=== PATIENT | male | born 1955 | race Two or more races ===

== ENCOUNTER 2024-11-09 08:36 | Emergency (ER) | payer OTHER, MEDICAID ==
[~2024-11-09] VITALS: Ht 170.2 cm; Wt 64.0 kg
--- NOTE | 2024-11-09 08:48 | ECG ---
[facility] Test Date: 2024-11-09 Test Time: 08:47:38 Pat Name: AIYANA MANLEY Department: ER Room: Gender: M [employer]: GP : 1955 Requested By: JUAN PABLO COREAS Order Number: [id number] Reading MD: Chato Santoro Measurements Intervals [place] Rate: 80 P: 54 AK: 158 QRS: 98 QRSD: 95 T: 21 QT: 396 QTc: 457 Interpretive Statements Sinus rhythm Right axis deviation Consider left ventricular hypertrophy Baseline wander in lead(s) II,III,aVR,aVF Electronically Signed On 11-11-2024 22:06:33 PDT by Chato Santoro Please click the below link to view image of tracing.
--- NOTE | 2024-11-09 09:02 | ED.PDOC ---
HPI Comments 69 year old male presents to the ED with a chief complaint of chest pain onset 7 days. Patient states he woke up 1 week ago experiencing chest pain, noticed pain worsens with movement of LT arm, deep breaths, and cough. Patient noticed pain has been constant for the past 7 days, decided to come to ED. PMHx HTN, DM, HLD. Denies headache, shortness of breath, blurry vision, nausea, vomiting, diarrhea, abdominal pain, chills, fever, congestion. No other symptoms or modifying factors present at this time. Chief Complaint: Chest Pain Time Seen by MD: 08:52 Primary Care Provider: unknown Reviewed Notes: Medications, Allergies Allergies: Coded Allergies: NO KNOWN ALLERGIES (Unverified , 11/09/24) Information Source: Patient Mode of Arrival: Ambulatory Severity: Moderate Timing: Weeks Duration: Since onset Prehospital treatment: None Location: Chest (L) Radiation: Arm (L) Quality: Sharp, Pressure Onset: At Rest Cardiac Risk Factors: Hyperlipidemia, HTN, Diabetes PE Risk Factors: None History of: None Modifying Factors: Nothing Past Medical History PAST MEDICAL HISTORY: DM, High Lipids, HTN Surgical History: Denies all surgeries Family History Family History: Reviewed,noncontributory to illness, No family hx of Cancer, No family hx of DM, No family hx of Heart torie, No family hx of HTN, No family hx ofKidney torie, No family hx of Liver torie, No family hx of Lung torie, No family hx of Stroke Social History Smoker: Quit Greater Than 1 Year Alcohol: Occasionally Drugs: Denies Drug Use Lives In: Home Constitutional: denies: chills, diaphoresis, fatigue, fever, malaise, sweats, weakness, others EENTM: denies: blurred vision, double vision, ear bleeding, ear discharge, ear drainage, ear pain, ear ringing, eye pain, eye redness, hearing loss, mouth pain, mouth swelling, nasal discharge, nose bleeding, nose congestion, nose pain, photophobia, tearing, throat pain, throat swelling, voice changes, others Respiratory: denies: cough, hemoptysis, orthopnea, SOB at rest, shortness of breath, SOB with excertion, stridor, wheezing, others Cardiovascular: reports: chest pain; denies: dizzy spells, diaphoresis, Dyspnea on exertion, edema, irregular heart beat, left arm pain, lightheadedness, palpitations, PND, syncope, others Gastrointestinal: denies: abdomen distended, abdominal pain, blood streaked bowels, constipated, diarrhea, dysphagia, difficulty swallowing, hematemesis, melena, nausea, poor appetite, poor fluid intake, rectal bleeding, rectal pain, vomiting, others Genitourinary: denies: burning, dysuria, flank pain, frequency, hematuria, incontinence, penile discharge, penile sore, pain, testicle pain, testicle swelling, urgency, others Neurological: denies: dizziness, fainting, headache, left sided numbness, left sided weakness, numbness, paresthesia, pre-existing deficit, right sided numbness, right sided weakness, seizure, speech problems, tingling, tremors, weakness, others Musculoskeletal: denies: back pain, gout, joint pain, joint swelling, muscle pain, muscle stiffness, neck pain, others Integumetry: denies: bruises, change in color, change in hair/nails, dryness, laceration, lesions, lumps, rash, wounds, others Allergic/Immunocompromised: denies: Difficulty Healing, Frequent Infections, Hives, Itching, others Hematologic/Lymphatic: denies: anemia, blood clots, easy bleeding, easy bruising, swollen glands, others Endocrine: denies: excessive hunger, excessive sweating, excessive thirst, excessive urination, flushing, intolerance to cold, intolerance to heat, unexplained weight gain, unexplained weight loss, others Psychiatric: denies: anxiety, bipolar disorder, depression, hopeless, panic disorder, schizophrenia, sleepless, suicidal, others All Other Systems: Reviewed and Negative Physical Exam General Appearance: Moderate Distress, Normal HEENT: Normal ENT Inspection, Pharynx Normal, TMs Normal Neck: Full Range of Motion, Non-Tender, Normal, Normal Inspection Respiratory: Chest Non-Tender, Lungs Clear, No Accessory Muscle Use, No Respiratory Distress, Normal Breath Sounds Cardiovascular: No Edema, No JVD, No Murmur, No Gallop, Normal Peripheral Pulses, Regular Rate/Rhythm Breast Exam: Deferred Gastrointestinal: No Organomegaly, Non Tender, No Pulsatile Mass, Normal Bowel Sounds, Soft Genitalia: Deferred Pelvic: Deferred Rectal: Deferred Extremities: No calf tenderness, Normal capillary refill, Normal inspection, Normal range of motion, Non-tender, No pedal edema Musculoskeletal : Apperance: Normal Neurologic: Alert, health psychologist II-XII nml as Tested, No Motor Deficits, Normal Affect, Normal Mood, No Sensory Deficits Cerebellar Function: Normal Reflexes: Normal Skin: Dry, Normal Color, Warm Peripheral Pulses: 3+ Radial (R), 3+ Radial (L) Lymphatic: No Adenopathy Was a procedure done? Was a procedure done?: No CP Differential Dx Differential Diagnosis: A-fib, A-Flutter, Angina, Anxiety / Panic Attack, Atrial Dysrhythmia, Electrolyte Disorder X-Ray, Labs, Meds, VS Vital Signs Date Time Temp Pulse Resp B/P (MAP) Pulse Ox O2 Delivery O2 Flow Rate FiO2 11/09/24 09:07 153/87 11/09/24 09:07 97.9 71 16 153/87 (109) 96 97.9 11/09/24 08:57 Room Air* 0 21 11/09/24 08:47 80 11/09/24 08:46 98.2 71 18 184/67 (106) 99 98.2 Lab Test 11/09/24 08:48 Range/Units White Blood Count Pending Red Blood Count Pending Hemoglobin Pending Hematocrit Pending Mean Corpuscular Volume Pending Mean Corpuscular Hemoglobin Pending Mean Corpuscular Hemoglobin Concent Pending Red Cell Distribution Width Pending Platelet Count Pending Mean Platelet Volume Pending Neutrophils (%) (Auto) Pending Lymphocytes (%) (Auto) Pending Monocytes (%) (Auto) Pending Basophils (%) (Auto) Pending Neutrophils # (Auto) Pending Lymphocytes # (Auto) Pending Monocytes # (Auto) Pending Sodium Level 139 136-145 mmol/L Potassium Level 4.3 3.5-5.1 mmol/L Chloride Level Pending Carbon Dioxide Level 27 20-31 mmol/L Anion Gap Pending Blood Urea Nitrogen 24 H 9-23 mg/dL Creatinine 1.12 0.700-1.30 mg/dL Glomerular Filtration Rate Calc 71 >90 mL/min BUN/Creatinine Ratio 21.4 H 10.0-20.0 Serum Glucose 129 H 74-106 mg/dL Calcium Level 10.1 8.7-10.4 mg/dL Troponin I High Sensitivity 8 </=54 ng/L Current Medications Medications (Trade) Dose Ordered Sig/Isatu Route Start Time Stop Time Status Last Admin Aspirin 325 mg ONCE ONCE PO 11/09/24 09:00 11/09/24 09:02 DC 11/09/24 09:07 Nitroglycerin (Ntrostat Sublingual) 0.4 mg ONCE ONCE SL 11/09/24 09:00 11/09/24 09:02 DC 11/09/24 09:07 Patient alert. Complaining of chest pain. Vitals stable. Answering questions. Was given aspirin. Was given nitro. Has risk factors for coronary artery disease. Blood pressure elevated. EKG reviewed does not show any acute changes pain LVH. Reviewed his history. Explained to the patient Continue cardiac monitoring. Time of 1ST Reevaluation: 09:22 Reevaluation 1ST: Unchanged Patient Education/Counseling: Diagnosis, Treatment, Prognosis Family Education/Counseling: No Family Present Additional Information The following tests were ordered, and results were reviewed by me: TROP-x3, EKG- x3, CBC, BMP I discussed treatment and results with medical personnel and: Patient Comprehensive systems review obtained and negative except for what is stated in the HPI. Departure 1 Departure Time of Disposition: 09:30 Impression: Primary Impression: Chest pain of unknown etiology Additional Impression: Hypertension Qualified Codes: I10 - Essential (primary) hypertension Disposition: ADMITTED INPATIENT Admit to: Med Surg Condition: Guarded Critical Care Note Critical Care Time?: No Stability Stability form required: No Heart Score Heart Score: Heart Score Response (Comments) Value History Slightly Suspicious 0 EKG Normal 0 Age >65 2 Risk Factors >3 or Hx ASHD 2 Troponin Normal limit 0 Total 4 I personally scribed for JUAN PABLO COREAS MD ([email or web address]) on 11/09/24 at 09:02. Electronically submitted by Alison Matthews ([email or web address]). I personally scribed for JUAN PABLO COREAS MD ([email or web address]) on 11/09/24 at 09:40. Electronically submitted by Alison Matthews ([email or web address]). JUAN PABLO COREAS MD Nov 09, 2024 09:02
[2024-11-09] MEDS: ASPirin 325 MG TAB PO ONE (09:07)
[2024-11-09] MEDS: NITROGLYCERIN 0.4 MG SL TAB SL ONE (09:07)
[2024-11-09 09:14] LABS: Basophils # (auto) 0.1 10 ^3/uL (0-0.2); Eosinophils # (auto) 0.1 10 ^3/uL (0-0.8); Hematocrit 38.6 % (41.0-53.0); Hemoglobin 13.1 g/dL (13.5-17.5); Lymphocytes # (auto) 1.1 10 ^3/uL (0.4-5.4); Mean Corpuscular Hemoglobin 32.2 pg (28.0-32.0); Mean Corpuscular Hgb Conc. 33.9 g/dL (32.0-36.0); Monocytes # (auto) 0.5 10 ^3/uL (0-1.3); Monocytes % (auto) 7.8 % (0.0-12.0); Neutrophils # (auto) 4.9 10 ^3/uL (1.6-8.6); Neutrophils % (auto) 73.2 % (37.0-80.0); Nucleated Red Blood Cells % 0.1 %; Platelet Count (auto) 327 10^3/uL (140-450); Red Blood Cells 4.06 10^6/uL (4.5-5.90); Red Cell Distribution Width 13.7 % (11.8-14.3); White Blood Cell 6.7 10^3/uL (4.4-10.8)
[2024-11-09 09:20] LABS: Potassium 4.3 mmol/L (3.5-5.1); Sodium 139 mmol/L (136-145)
[2024-11-09 09:21] LABS: Calcium 10.1 mg/dL (8.7-10.4); Carbon Dioxide 27 mmol/L (20-31)
[2024-11-09 09:26] LABS: BUN/Creatinine Ratio 21.4 (10.0-20.0)
[2024-11-09 09:27] LABS: Blood Urea Nitrogen 24 mg/dL (9-23); Glucose 129 mg/dL (74-106)
[2024-11-09 10:14] LABS: Anion Gap 6 (5-15); Chloride 106 mmol/L (98-107)
[2024-11-09 10:48] VITALS: BP 150/58; RESP 18; TEMP 98; O2SAT 98
[2024-11-09 12:00] VITALS: PULSE 53
== END 2024-11-09 12:19 | disposition left against medical advice (07) ==
LOC: ER 08:36
DX: R07.89 Other chest pain (principal); I10 Essential (primary) hypertension; E11.9 Type 2 diabetes mellitus without complications; E78.5 Hyperlipidemia, unspecified
CPT/HCPCS: 36415; 80048; 84484; 85025; 93005